=== PATIENT | female | born 1985 | race American Indian/Alaskan Native ===

== ENCOUNTER 2022-06-30 08:44 | Emergency (ER) | payer SELFPAY ==
--- NOTE | 2022-06-30 10:02 | XRay Report ---
RIGHT FOOT 3 VIEWS INDICATION: injury. COMPARISON: None. IMPRESSION: Mild distal soft tissue swelling is suspected. No acute osseous abnormality or signific ant joint pathology is detected. Signer Name: Aldo Puente Jr, MD Signed: 06/30/2022 9:58 AM Workstation Name: [id number]
[2022-06-30] MEDS ORDERED: HYDROcodone/ACETAMINOPHEN 5-325 MG TAB PO ONE (10:37)
[2022-06-30] MEDS ORDERED: IBUPROFEN 800 MG TAB PO ONE (10:37)
--- NOTE | 2022-06-30 10:43 | Emergency Department Report ---
ED Extremity Problem HPI - General Chief complaint: Extremity Injury, Lower Stated complaint: TWISTED RIGHT ANKLE Time Seen by Provider: 06/30/22 10:27 Source: patient Mode of arrival: Ambulatory Limitations: No Limitations - History of Present Illness Initial comments: 29-year-old female presenting with traumatic right ankle pain. Patient reports she was walking yesterday and there was a steep area which she tripped and fell, patient was able to get up however she has been experiencing pain in her ankle. She describes pain as sharp and throbbing, worse with pressure movement improves with rest. She denies prior history of fractures or dislocation to the extremity. MD Complaint: extremity pain, extremity swelling, joint swelling -: Sudden Location: right History of Same: No Radiation: none - Related Data Home Medications Medication Instructions Recorded Confirmed Last Taken Benztropine [Cogentin] 1 mg PO BID 07/18/19 07/18/19 Unknown Divalproex ER [DepaKOTE ER] 500 mg PO QHS 07/18/19 07/18/19 Unknown OLANZapine [Zyprexa] 5 mg PO QHS 07/18/19 07/18/19 Unknown Previous Rx's Medication Instructions Recorded Last Taken Type Ibuprofen [Motrin 800 MG tab] 800 mg PO TID PRN #20 tablet 06/30/22 Unknown Rx Allergies Allergy/AdvReac Type Severity Reaction Status Date / Time No Known Allergies Allergy Verified 06/30/22 09:34 ED Review of Systems ROS: Stated complaint: TWISTED RIGHT ANKLE Other details as noted in HPI Eyes: as per HPI Respiratory: denies: cough, orthopnea Cardiovascular: denies: chest pain, palpitations Endocrine: denies: see HPI, excessive sweating Gastrointestinal: denies: abdominal pain, nausea, vomiting Genitourinary: denies: urgency Musculoskeletal: joint swelling, arthralgia, myalgia. denies: back pain Skin: denies: rash, change in color Neurological: denies: headache, weakness Psychiatric: denies: depression Hematological/Lymphatic: denies: easy bleeding, easy bruising ED Past Medical Hx - Past Medical History Previous Medical History?: No Hx Psychiatric Treatment: Yes (bipolar, schizophrenia) Additional medical history: unobtainable - Surgical History Past Surgical History?: No Additional Surgical History: unobtainable - Social History Smoking Status: Never Smoker Substance Use Type: None - Medications Home Medications: Home Medications Medication Instructions Recorded Confirmed Last Taken Type Benztropine [Cogentin] 1 mg PO BID 07/18/19 07/18/19 Unknown History Divalproex ER [DepaKOTE ER] 500 mg PO QHS 07/18/19 07/18/19 Unknown History OLANZapine [Zyprexa] 5 mg PO QHS 07/18/19 07/18/19 Unknown History Ibuprofen [Motrin 800 MG tab] 800 mg PO TID PRN #20 tablet 06/30/22 Unknown Rx ED Physical Exam - General Limitations: No Limitations General appearance: alert - Head Head exam: Present: atraumatic - Eye Eye exam: Present: normal appearance Pupils: Present: normal accommodation - ENT ENT exam: Present: normal exam, normal orophraynx, mucous membranes moist - Neck Neck exam: Present: normal inspection - Respiratory Respiratory exam: Present: normal lung sounds bilaterally. Absent: respiratory distress - Cardiovascular Cardiovascular Exam: Present: regular rate, normal rhythm - GI/Abdominal GI/Abdominal exam: Present: soft - Extremities Exam Extremities exam: Present: normal inspection, tenderness, normal capillary refill - Expanded Lower Extremity Exam Left Foot/Toe exam: Present: tenderness, swelling Gait: Positive: observed and limited by pain 1 - Tender on palpation mild swelling. No deformity, no ecchymosis, no bruising. - Back Exam Back exam: Present: normal inspection, full ROM - Neurological Exam Neurological exam: Present: alert, oriented X3 - Psychiatric Psychiatric exam: Present: normal affect, normal mood - Skin Skin exam: Present: warm, dry, intact, normal color ED Course Vital Signs 06/30/22 09:33 Temperature 98.9 F Pulse Rate 100 H Respiratory 17 Rate Blood Pressure 138/89 [Left] O2 Sat by Pulse 99 Oximetry ED Medical Decision Making - Medical Decision Making X-rays are negative for acute fractures or dislocation, swelling noted on x-ray as also noted on physical exam, patient is neurovascularly intact, however she still unable to bear weight. Will discharge home with rice therapy including activity modification NSAIDs, [place], and orthopedic referral. Patient remained stable nontoxic-appearing, afebrile, ambulating steadily without assistance. Gone over ED findings with patient as well as plan for follow-up. Also discussed return precautions with patient, all questions and concerns addressed. Patient is stable to be discharged follow-up outpatient. Audio voice dictation device used, hence the chart might contain some dictation errors, mispronunciations, wrong spelling and wrong verbiage. Critical care attestation.: If time is entered above; I have spent that time in minutes in the direct care of this critically ill patient, excluding procedure time. ED Disposition Clinical Impression: Fall, Right foot injury Disposition: HOME / SELF CARE / HOMELESS Is pt being admited?: No Does the pt Need Aspirin: No Condition: Stable Instructions: Foot Sprain Prescriptions: Ibuprofen [Motrin 800 MG tab] 800 mg PO TID PRN #20 tablet PRN Reason: Pain , Severe (7-10) Referrals: SILVIA WINCHESTER MD [Primary Care Provider] - 3-5 Days LUCERO JIMENES MD [Staff Physician] - 3-5 Days
[2022-06-30 11:18] VITALS: BP 118/78
== END 2022-06-30 11:18 | disposition home or self-care (01) ==
LOC: ED 08:44
DX: S99.921A Unspecified injury of right foot, initial encounter (principal); F31.9 Bipolar disorder, unspecified; F20.9 Schizophrenia, unspecified; Z79.899 Other long term (current) drug therapy; W18.39XA Other fall on same level, initial encounter; Y93.89 Activity, other specified; Y92.89 Other specified places as the place of occurrence of the external cause; Y99.8 Other external cause status
CPT/HCPCS: 99283